=== PATIENT | male | born 1990 | race Caucasian/White ===

== ENCOUNTER 2024-03-03 14:46 | Emergency (ER) | payer MEDICAID ==
[~2024-03-03] VITALS: Ht 172.7 cm; Wt 88.5 kg
[2024-03-03 15:06] VITALS: BP 129/69; PULSE 59; RESP 18; TEMP 97.8; O2SAT 97
[2024-03-03] MEDS: KETOROLAC 30 MG/ML VIAL IM ONE (15:56)
[2024-03-03] MEDS: ACETAMINOPHEN EXTRA STRENGTH 500 MG TAB PO ONE (15:57)
[2024-03-03 16:08] VITALS: BP 136/70; PULSE 88; RESP 18; TEMP 98; O2SAT 99
== END 2024-03-03 16:09 | disposition home or self-care (01) ==
LOC: MED 14:46
DX: G56.00 Carpal tunnel syndrome, unspecified upper limb (principal)
CPT/HCPCS: 96372; 99283; J1885